=== PATIENT | female | born 1955 | race Caucasian/White ===

== ENCOUNTER 2018-08-04 01:05 | Outpatient (CLI) | payer BC, SELFPAY ==
--- NOTE | 2018-08-04 08:30 | DI.RAD_ITS ---
SYMPTOM/DIAGNOSIS: LT FOOT PAIN, ? STRESS FX LEFT FOOT: Three views were obtained. No fracture identified. There is reportedly a clinical suspicion of stress fracture and additional evaluation with MRI or bone scan could be considered for evaluation of this diagnostic possibility.
== END 2018-08-04 01:25 ==
PROVIDERS: PCP Nurse Practitioner; Visit Provider Chiropractor
DX: M79.672 Pain in left foot (principal)
CPT/HCPCS: 73630

== ENCOUNTER 2021-10-03 02:57 | Outpatient (CLI) | payer MEDICAID, SELFPAY ==
[2021-10-03 09:19] LABS: HCT 42.8 % (36.0-46.0); HGB 13.8 g/dL (11.2-15.7); MCH 30.7 pg (27.0-33.0); MCHC 32.2 % (32.0-36.0); MCV 95.1 fL (80-95); Platelet Count 282 10^3/uL (130-400); RDW 12.8 % (11.7-14.6); RDW-SD 44.5 fL; WBC 4.78 10^3/uL (4.4-10.8)
[2021-10-03 09:31] LABS: Hemoglobin A1C 5.8 % (<5.7)
[2021-10-03 10:16] LABS: ALT 44 U/L (14-59); AST 23 U/L (15-37); Albumin 3.9 g/dL (3.4-5.0); Alkaline Phosphatase 79 U/L (46-116); Anion Gap 8.5 mmol/L (3-11); BUN 14 mg/dL (7-18); Bilirubin, Total 0.3 mg/dL (0.2-1.0); CO2 29.5 mmol/L (21.0-32.0); CREATININE 0.8 mg/dL (0.55-1.02); Calcium 9.2 mg/dL (8.5-10.1); Calculated LDL 164 mg/dL (<100); Chloride 105 mmol/L (98-107); Cholesterol 252 mg/dL (<200); Glucose 102 mg/dL (74-106); HDL Cholesterol 74 mg/dL (40-60); Potassium 4.5 mmol/L (3.5-5.1); Sodium 143 mmol/L (136-145); TSH (W/Ref FT4) 0.06 uIU/mL (0.36-3.74); Triglyceride 71 mg/dL (<150)
[2021-10-03 10:38] LABS: FREE T4 0.89 ng/dL (0.76-1.46)
[2021-10-05 00:44] LABS: Vitamin D 25 Total 65.1 ng/mL (30-100)
== END 2021-10-03 02:58 | disposition home or self-care (01) ==
LOC: LBO 02:57
PROVIDERS: PCP Nurse Practitioner; Visit Provider Nurse Practitioner
DX: Z00.00 Encounter for general adult medical examination without abnormal findings (principal); Z13.220 Encounter for screening for lipoid disorders; Z86.39 Personal history of other endocrine, nutritional and metabolic disease; R73.01 Impaired fasting glucose; E55.9 Vitamin D deficiency, unspecified
CPT/HCPCS: 36415; 80053; 80061; 82306; 85027; 83036; 84439; 84443

== ENCOUNTER 2021-10-10 00:57 | Outpatient (CLI) | payer MEDICAID, SELFPAY ==
--- NOTE | 2021-10-10 12:30 | DI.MAMMO_ITS ---
Exam(s) MAMMO SCREENING EXAM: MAMMO SCREENING CLINICAL HISTORY: screening,z12.39 TECHNIQUE: Bilateral full field digital CC and MLO mammographic images were obtained with 3D tomosyn thesis and utilizing computer aided detection (CAD). COMPARISON: Available for comparison. FINDINGS: Masses/Architectural Distortion: None seen. Microcalcifications: No suspicious pleomorphic-type are seen. Skin Thickening/Nipple Retraction: None. IMPRESSION: 1. No significant interval change with no specific features of malignancy noted. 2. Unless there is more urgent need, screening mammography is recommended, as per [place] [employer] guidelines. BI-RADS Category 1 - Negative Breast Density - Category C - Heterogeneously dense Breast density category C or D implies that the patient has dense breast tissue. Dense breast tissue is very common and is not abnormal but dense breast tissue can make it harder to find cancer on a ma mmogram. Also, dense breast tissue may increase their breast cancer risk. This information about the result of the mammogram report was provided to the patient to raise their awareness. Use this report when you speak with the patient about their risks for breast cancer, which includes their family hist ory. At that time, you may recommend for more screening tests (Ultrasound or MRI) as they might be us eful based on their risk. A negative radiographic report should not delay biopsy if a dominant or clinically suspicious mass is present. Up to ten percent of cancers are not identified on mammography. A negative report may reinforce clinical impression. Adenosis and dense breasts may obscure an underlying neoplasm. False positive reports average 6 to 10%. Patient will receive a letter notifying them of these results.
== END 2021-10-10 01:17 ==
PROVIDERS: PCP Nurse Practitioner; Visit Provider Nurse Practitioner
DX: Z12.31 Encounter for screening mammogram for malignant neoplasm of breast (principal); R92.8 Other abnormal and inconclusive findings on diagnostic imaging of breast
CPT/HCPCS: 77063; 77067

== ENCOUNTER → 2022-08-24 08:56 | Outpatient (BNVA) | payer MEDICARE, MEDICAID, SELFPAY | PROVIDERS: PCP Nurse Practitioner; Referring Provider Nurse Practitioner; Visit Provider Surgery | DX: Z12.11 Encounter for screening for malignant neoplasm of colon (principal); Z86.010 Personal history of colon polyps ==

== ENCOUNTER 2022-08-27 11:18 | PSDC | payer MEDICARE, MEDICAID, SELFPAY ==
--- NOTE | 2022-08-27 07:15 | COLE_ITS ---
Date of service: 08/27/22 Time of Service: : Colonoscopy Report Date of procedure: 08/27/22 Pre-op diagnosis general: screening Post-op diagnosis procedure note: other (polyp and internal hemorrhoids) Procedure: Colonoscopy with polypectomy Internal hemorrhoid banding Surgeon: Luz Marina Fernández Anesthesia Type: General:No Airway Estimated blood loss (mL): 3 Complications: None Disposition: same day Indications: The patient? is a pleasant ? 67-year-old female who is here to discuss another screening colonoscopy. ? Her last colonoscopy was normal in 2011.? She denies any changes in bowel habits, melena, hematochezia, unintentional weight loss or family history of colon cancer.? The procedure and risks were discussed.? The prep was reviewed in detail.? Risks, benefits and complications have been reviewed. Complications include but are not limited to bleeding, pain, perforation, missed small lesion/polyp, sore throat, aspiration and adverse reaction to the medications. Questions were entertained and answered to their satisfaction and they wished to proceed. No guarantees were given or implied.? We discussed hemorrhoid banding at the time of her colonoscopy just like last time.? Risks alternatives and complications of hemorrhoid banding were reviewed with her. Prep: Miralax/Dulcolax Procedure Start Time: :22 Procedure End Time: 12:48 Retraction Time: 11 minutes Findings: one sessile polyp 3 internal hemorrhoids Procedure Description: After informed consent was obtained the patient was taken to the procedure room and placed in a left decubitous position. Monitors were applied and a time out was done. The patients name, date of , procedure, allergies to medications and metal in their body was reviewed. The patient was then sedated. Once sedated and comfortable a rectal exam was done. External exam was normal. Internal exam revealed a normal sphincter tone and no palpable masses. The scope was then introduced and retro-flexed. Grade 1 and 2 internal hemorrhoids were noted. No polyps or masses were identified on retro-flexion. The scope was then advanced to the cecum with some difficulty. The ileocecal vlave and appendiceal orifice were identified. The prep was good. The scope was then slowly retracted over 11 minutes back into the rectum. Polyps were removed with cold forceps in the sigmoid colon. There was no diverticulosis noted. The scope was removed. An anoscope was inserted and 3 internal h emorrhoids were banded in a standard fashion. The patient was woken up and taken back to Same day surgery in stable condition. The patient tolerated the procedure well and there were no immediate com plications. Follow up: The patient should follow up in 5 years unless they develop changes in bowel habits or other new gastrointestinal complaints.
--- NOTE | 2022-08-27 07:16 | PDOC.DSDIS_ITS ---
Date of service: 08/27/22 Time of Service: 12:22 Discharge Plan Disposition Patient Disposition: HOME Condition: Stable Discharge Details Reason For Visit: colonoscopy Attending Provider: Luz Marina Fernández Primary Care Provider: Yolande Wills Home Meds and New Rx's Prescriptions: Continued Ashwagandha 1 tab PO DAILY Label Comments: takes for adrenals. magnesium oxide 500 MG capsule 500 mg PO DAILY PRN Label Comments: takes for elimination/sleep. Curucema Tumeric 2 tab PO DAILY Label Comments: takes for inflammation GFT Chromium 3 tab PO DAILY Label Comments: takes for pancreas Rubalcava [place] 3 tab DAILY Label Comments: Takes for inflammation Pancreatrophin 3 tab PO DAILY Label Comments: Takes for pancreas-insulin. multivit no iron 1 PO DAILY mometasone 0.1 % cream 1 applic TP DAILY PRN Label Comments: Rx Instructions: 03/10/20- apply externally once a day to ears prn itching. acyclovir [Zovirax] 5 % ointment 1 applic TP 6XD PRN Rx Instructions: 03/10/20- externally to cold sores, five times a day clindamycin phosphate 1 % lotion 1 applic topical DAILY PRN (Reason: perioral dermatitis) Qty: 60 1RF valacyclovir 1 gram tablet 2,000 mg PO BID PRN Rx Instructions: 2 tabs BID for one day PRN Discontinued polyethylene glycol 3350 17 gram/dose powder 238 g PO ONCE Qty: 238 0RF Rx Instructions: take per colonoscopy instructions bisacodyl [Dulcolax (bisacodyl)] 5 mg tablet,delayed release (DR/EC) 5 mg PO ONCE Qty: 4 0RF Rx Instructions: take per colonoscopy instructions Discharge Instructions Instructions: Colorectal Polyps (DC), Hemorrhoids (DC), Rubber Band Ligation (DC) Additional Instructions: Findings: one polyp 3 hemorroids Follow up: 5 years Other: sitz baths for comfort Tylenol and ibuprofen for comfort Please call if you develop: fevers >101.5 Nausea or Vomiting Abdominal pain that is not transient Rectal bleeding that is more then a tbsp A hard abdomen and inability to pass gas DAY SURGERY UNIT POST ENDOSCOPY INSTRUCTIONS Instructions for everyone who is given Anesthesia: For your safety, please do the following for the next 24 Hours: a. Do not drive or operate dangerous equipment b. Do not drink alcohol beverages or use any recreational drugs for the first 24 hours or while taking pain medications. The medications in your body may have a reaction that can be dangerous. c. Do not make any important decisions or sign any important papers 1. Generally there are no restrictions on your activity after a day or so has gone by, but you may feel a bit fatigued for a few days. 2. After you arrive home you may have a light meal and return to a normal diet as you can tolerate it without feeling sick to your stomach. 3. After surgery, you may feel pain or discomfort. This should be only transient, but if it persists please contact your doctor. 4. If there are any questions regarding the findings of your procedure, please feel free to contact your doctor. 6. If you are unable to contact your doctor with a problem, contact the hospital at [phone]. 7. Continue all your regular medications unless directed otherwise. I understand the above instructions and have no questions. Signature of Patient or Responsible Adult Escort Date/Time Name of Responsible Adult Escort Signature of Nurse Date/Time Activity:: Activity as Tolerated Activity:: Activity as Tolerated Diet:: As Tolerated Discharge Orders Discharge Orders: Discharge Order (Routine); Ordered 08/27/22 Ordered By: Luz Marina Fernández
[2022-08-27 11:40] VITALS: BP 134/65; PULSE 76; RESP 16; TEMP 36.6; O2SAT 98
--- NOTE | 2022-08-27 12:01 | W.ANESPRE ---
General Info Date of Service Date Performed: 08/27/22 Height: 5 ft 3 in Weight: 61.1 kg Body Mass Index (BMI): 23.8 Surgical Procedure: Operation Date: 08/27/22 12:50 Proposed Procedure Side Surgeon p Colonoscopy Luz Marina Fernández MD Meds Allergies and Home Medications Allergies Allergy/AdvReac Type Severity Reaction Status Date / Time gluten AdvReac Severe hard, Verified 08/27/22 11:44 painful stomach, and cold sores. corn AdvReac blistering Verified 08/27/22 11:44 and skin dryness Home Medication Medication Instructions Recorded Ashwagandha 1 tab PO DAILY 11/07/16 Curucema Tumeric 2 tab PO DAILY 11/07/16 Gft Chromium 3 tab PO DAILY 11/07/16 Rubalcava [place] 3 tab DAILY 11/07/16 Multivit No Iron 1 PO DAILY 11/07/16 Pancreatrophin 3 tab PO DAILY 11/07/16 magnesium oxide 500 mg capsule 500 mg PO DAILY PRN 11/07/16 acyclovir 5 % topical ointment 1 applic topical 6XD PRN 03/11/20 (Zovirax) mometasone 0.1 % topical cream 1 applic topical DAILY PRN 03/11/20 clindamycin phosphate 1 % lotion 1 applic topical DAILY PRN 10/09/21 perioral dermatitis #60 mL bisacodyl 5 mg tablet,delayed 5 mg PO ONCE colonscopy bowel prep 08/24/22 release (Dulcolax (bisacodyl)) #4 tabs polyethylene glycol 3350 17 238 g PO ONCE colonoscopy prep 08/24/22 gram/dose oral powder #238 grams valacyclovir 1 gram tablet 2,000 mg PO BID PRN 08/24/22 Current Visit Medications: Current Medications Generic Name Dose Route Start Last Admin Trade Name Freq PRN Reason Stop Dose Admin Hyoscyamine Sulfate 0.125 mg 08/27/22 07:17 Hyoscyamine 0.125 Mg Sl/Oral/Chew SL DIRECTED PRN Ringer's Solution 1,000 mls @ 80 mls/hr 08/27/22 06:00 IV 09/23/22 23:59 INFUSION [facility] IV Miscellaneous Supplies 1 each 08/27/22 06:00 Iv Access IV 09/23/22 23:59 DIRECTED [facility] Ondansetron HCl 4 mg 08/27/22 07:17 Ondansetron 4 Mg/2 Ml Vial IVP Q4H PRN PRN Nausea / Vomiting Sodium Chloride 0 ml 08/27/22 06:00 Normal Saline Flush 10 Ml Syr IV 09/23/22 23:59 PRN PRN Sodium Chloride 0 ml 08/27/22 06:00 Normal Saline 10 Ml Vial IJ 09/23/22 23:59 DIRECTED PRN Sterile Water 0 ml 08/27/22 06:00 Water,Injection,Sterile 10 Ml Vial IJ 09/23/22 23:59 DIRECTED PRN PFSH Active Problems Active Problems: Problem Status Onset Code SARS-CoV-2 positive ~03/06/22 U07.1 Perioral dermatitis ~10/09/21 L71.0 Acute swimmer's ear of right side H60.331 Impacted cerumen of both ears H61.23 Impacted cerumen 06/16/15 H61.20 Postmenopausal atrophic vaginitis 10/01/17 N95.2 Hemorrhoids 10/10/16 K64.9 Eczema 06/16/15 L30.9 Conductive hearing loss, external ear 06/16/15 H90.2 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 Tobacco Smoking/Tobacco Use Status: Former Tobacco Use Passive smoking exposure: No Second hand exposure: No Alcohol Alcohol Intake: current Alcohol intake frequency: 0-2 drinks per day Substance Use Substance use: Never Substance use type: does not use Vital Signs and Lab Results Vital Signs Most Recent Vital Signs in EMR: Most Recent Vital Signs Temp Pulse Resp BP Pulse Ox 36.6 C 76 16 134/65 98 08/27/22 11:40 08/27/22 11:40 08/27/22 11:40 08/27/22 11:40 08/27/22 11:40 Lab Results Blood Type / Crossmatch: No Data to Display Complete Blood Count: No Data to Display Complete Metabolic Panel: No Data to Display Liver Function Panel: No Data to Display Coagulation Panel: No Data to Display Cardiac Panel: No Data to Display Arterial Blood Gas: No Data to Display Venous Blood Gas: No Data to Display Pancreas Panel: No Data to Display Thyroid Panel: No Data to Display Infectious Disease: No Data to Display Blood Cultures: No Data to Display Toxicology Panel: No Data to Display Anesthesia Assessment and Plan Anesthesia History Personal History: No History of Anesthesia Complications Family History: No Family History of Anesthesia Complications Exercise Tolerance Exercise Tolerance: Metabolic Equivalents>4 Pertinent Negatives Pertinent Negatives: No Symptoms of GERD, No Major Cardiovascular Symptoms or Complaints and No Major Pulmonary Symptoms or Complaints Cardiac & Pulmonary Exam Cardiac Exam: Normal S1/S2 Heart Sounds Pulmonary Exam: Clear Bilateral Breath Sounds Implantable Cardiac Device Does patient have a Pacemaker or an ICD?: No Airway Exam Known Difficult Airway: No Mallampati Class: 3 Mouth Opening: Narrow (< 3cm) Thyromental Distance: Greater than 3 cm Neck Range of Motion: Full ROM Neck Circumference: Normal Teeth Condition: Normal Dentition ASA Classification ASA Score: ASA 2 Emergency Case?: No NPO Status NPO Status: NPO Clears >2 hours, Solids >8 hours Anesthesia Plan Resuscitation Status: Full Code Anesthesia Technique: General Anesthesia Airway Planned: Natural Airway Monitors Used: Standard Monitors
[2022-08-27] MEDS: Lactated Ringers 1,000 ML 80 ML IV (12:02)
[2022-08-27 12:07] VITALS: BMI 23.8
--- NOTE | 2022-08-27 12:41 | BOWEL_PTH ---
PATIENT: Meme Patel LOC: [facility] U#:[id number] AGE/SX: 67/F ROOM: RE08/27/[address]: Luz Marina Fernández MD : 1955 BED: DIS: 08/27/2022 SPEC #: [id number] RECD: 08/27/22 14:57 STATUS: TRAN RE #: [id number] TRAY: 08/27/22 12:[address]: Luz Marina Fernández DEPT: Surgical Specimen RECD BY: Dee Dee Lora ENTERED: 08/27/22 14:57 SP TYPE: Bowel OTHR DR: Yolande Wills APRN Tissues: 1 - BIOPSY BOWEL Procedures: GROSS AND MICRO LEVEL 4 Comments: [id number]
[2022-08-27 12:52] VITALS: BP 135/63; PULSE 72; RESP 16; TEMP 36.6; O2SAT 96
[2022-08-27 13:22] VITALS: BP 145/70; PULSE 69; RESP 16; TEMP 36.4; O2SAT 97
[2022-08-27] MEDS: Acetaminophen 500 MG TAB 1000 MG PO (13:46)
[2022-08-27] MEDS: Lidocaine 2% Jelly 6 ML SYR TP (13:47)
--- NOTE | 2022-08-27 13:48 | W.ANESPOSTOP ---
Postoperative Evaluation Date, Time and Location Date Performed: 08/27/22 Time Performed: 13:22 Patient Location: Day Surgery Unit Vital Signs Most Recent Imported Vital Signs: Most Recent Vital Signs Temp Pulse Resp BP Pulse Ox 36.4 C L 69 16 145/70 H 97 08/27/22 13:22 08/27/22 13:22 08/27/22 13:22 08/27/22 13:22 08/27/22 13:22 Pain Score Most Recent Pain Score: Most Recent Pain Score Pain Level 8 08/27/22 13:22 Assessment Mental Status: Awake (Alert & Oriented to Patient Baseline) Airway and Respiratory Function: Patent airway with normal (patient baseline) respiratory exam Cardiovascular Function: Hemodynamically Stable Hydration Status: Adequately Hydrated Nausea & Vomiting: No Nausea or Vomiting Pain: Pain is Moderate or Severe Postoperative Pain Management: Pain being addressed with medication (Hemorrhoid banding site, acetaminophen and topical lidocaine) Peripheral Nerve Block: Patient did not receive a nerve block
== END 2022-08-27 14:20 | disposition home or self-care (01) ==
PROVIDERS: PCP Nurse Practitioner; Visit Provider Surgery
PROC: 0DJD8ZZ Inspection of Lower Intestinal Tract, Via Natural or Artificial Opening Endoscopic (ICD-10-PCS; CPT 45378; principal; 2022-08-27 12:45)
DX: Z12.11 Encounter for screening for malignant neoplasm of colon (principal); K64.1 Second degree hemorrhoids; K63.5 Polyp of colon
CPT/HCPCS: 45380; 46221; 88305

== ENCOUNTER 2022-09-27 15:28 | Outpatient (REF) | payer MEDICARE, MEDICAID, SELFPAY ==
--- NOTE | 2022-09-27 13:30 | PAPFT_PTH ---
PATIENT: Meme Patel LOC: [facility] U#:[id number] AGE/SX: 67/F ROOM: RE09/27/[address]: Yolande Wills APRN : 1955 BED: DIS: 09/27/2022 SPEC #: [id number] RECD: 09/27/22 17:15 STATUS: TRAN REFiliberto #: [id number] TRAY: 09/27/22 13:[address]: Yolande Wills DEPT: [facility] Cytology RECD BY: Mabel Lemus Tissues: 1 - CX/ENDOCX FOR PAP SMEARS Procedures: PAP THIN PREP/UVM Screening HPV DNA PROBE Comments: [id number]
== END 2022-09-27 15:29 | disposition home or self-care (01) ==
LOC: LBN 15:28
PROVIDERS: PCP Nurse Practitioner; Visit Provider Nurse Practitioner
DX: Z01.419 Encounter for gynecological examination (general) (routine) without abnormal findings (principal); Z11.51 Encounter for screening for human papillomavirus (HPV)
CPT/HCPCS: 88142; 87624

== ENCOUNTER 2022-10-02 02:32 | Outpatient (CLI) | payer MEDICARE, MEDICAID, SELFPAY ==
[2022-10-02 11:32] LABS: HCT 41.3 % (36.0-46.0); HGB 13.4 g/dL (11.2-15.7); MCH 31.1 pg (27.0-33.0); MCHC 32.4 % (32.0-36.0); MCV 96 fL (80-95); MPV 9.8 fL (8.0-11.0); Platelet Count 265 10^3/uL (130-400); RBC 4.31 10^6/uL (3.93-5.22); RDW 12.1 % (11.7-14.6); RDW-SD 43.1 fL; WBC 5.39 10^3/uL (4.4-10.8)
[2022-10-02 12:19] LABS: ALT 47 U/L (14-59); AST 27 U/L (15-37); Alkaline Phosphatase 75 U/L (46-116); Anion Gap 6.7 mmol/L (3-11); BUN 14 mg/dL (7-18); Bilirubin, Total 0.4 mg/dL (0.2-1.0); CO2 30.3 mmol/L (21.0-32.0); CREATININE 0.8 mg/dL (0.55-1.02); Calcium 9.3 mg/dL (8.5-10.1); Calculated LDL 155 mg/dL (<100); Chloride 102 mmol/L (98-107); Cholesterol 247 mg/dL (<200); Estimated GFR 81.72 (mL/min/1.73m2); Glucose 106 mg/dL (74-106); HDL Cholesterol 72 mg/dL (40-60); Potassium 4.4 mmol/L (3.5-5.1); Sodium 139 mmol/L (136-145); Total Protein 7.4 g/dL (6.4-8.2); Triglyceride 102 mg/dL (<150)
[2022-10-02 12:35] LABS: Hemoglobin A1C 5.9 % (<5.7)
== END 2022-10-02 02:33 | disposition home or self-care (01) ==
LOC: LBO 02:32
PROVIDERS: PCP Nurse Practitioner; Visit Provider Nurse Practitioner
DX: E78.5 Hyperlipidemia, unspecified (principal); R73.03 Prediabetes; Z01.419 Encounter for gynecological examination (general) (routine) without abnormal findings
CPT/HCPCS: 36415; 80053; 80061; 85027; 83036

== ENCOUNTER 2023-10-04 03:09 | Outpatient (CLI) | payer MEDICARE, OTHER, SELFPAY ==
[2023-10-04 10:18] LABS: Hemoglobin A1C 5.9 % (<5.7)
[2023-10-04 10:38] LABS: Anion Gap 9.1 mmol/L (3-11); BUN 14 mg/dL (7-18); CO2 26.9 mmol/L (21.0-32.0); CREATININE 0.8 mg/dL (0.55-1.02); Calcium 9.3 mg/dL (8.5-10.1); Calculated LDL 169 mg/dL (<100); Chloride 103 mmol/L (98-107); Cholesterol 262 mg/dL (<200); Estimated GFR 81.21 (mL/min/1.73m2); Glucose 106 mg/dL (74-106); HDL Cholesterol 85 mg/dL (40-60); Potassium 4.3 mmol/L (3.5-5.1); Sodium 139 mmol/L (136-145); TSH (W/Ref FT4) 0.13 uIU/mL (0.36-3.74); Triglyceride 41 mg/dL (<150)
[2023-10-04 10:57] LABS: FREE T4 0.95 ng/dL (0.76-1.46)
[2023-10-04 17:52] LABS: CRP, High Sensitivity 3.83 mg/L (See Note)
[2023-10-04 21:46] LABS: Hepatitis C Ab w Rflx HCV PCR Negative (Negative)
== END 2023-10-04 03:10 | disposition home or self-care (01) ==
LOC: LBO 03:09
PROVIDERS: PCP Nurse Practitioner; Referring Provider Nurse Practitioner; Visit Provider Nurse Practitioner
DX: R73.03 Prediabetes (principal); I10 Essential (primary) hypertension; E78.5 Hyperlipidemia, unspecified
CPT/HCPCS: 36415; 80048; 80061; 86141; 86803; 83036; 84439; 84443

== ENCOUNTER → 2024-01-02 01:42 | Outpatient (CLI) | payer MEDICARE, OTHER, SELFPAY ==
--- NOTE | 2024-01-02 14:56 | DI.DEXA_ITS ---
Exam(s) XR DEXA BONE DENSITY W/WO ALBA EXAM: XR DEXA BONE DENSITY W/WO ALBA CLINICAL HISTORY: screening for osteoporosis in postmenopausal woman,z78.0 TECHNIQUE: Routine DEXA evaluation of the lumbar spine, hip, or forearm. COMPARISON: No exams were available for comparison FINDINGS: Performed on a Hologic unit. Lateral image: No compression fracture evident. Lumbar Spine total T-score: -1.5 Hip total T-score:-0.9 Independent reading at the level of the femoral neck yields T-score of -1.5 Forearm total T-score: Minus 2.4 IMPRESSION: Bone mineral density measures in the osteopenia range. Fracture risk is moderate. Note: Any spine fracture indicates 5x risk for subsequent spine fracture and 2x risk for subsequent h ip fracture. World Health Organization criteria for BMD interpretation classify patients: Normal...... T- Score at or above -1.0 Osteopenic... T- Score between -1.0 and -2.5 Osteoporosis... T-Score at or below -2.5
== END ==
PROVIDERS: PCP Nurse Practitioner; Visit Provider Nurse Practitioner
DX: Z12.31 Encounter for screening mammogram for malignant neoplasm of breast (principal); Z13.820 Encounter for screening for osteoporosis; M85.89 Other specified disorders of bone density and structure, multiple sites
CPT/HCPCS: 77063; 77067; 77080

== ENCOUNTER 2024-01-08 05:10 | Outpatient (CLI) | payer MEDICARE, OTHER, SELFPAY ==
[2024-01-08 16:17] LABS: Hemoglobin A1C 6.1 % (<5.7)
== END 2024-01-08 05:11 | disposition home or self-care (01) ==
LOC: LBO 05:10
PROVIDERS: PCP Nurse Practitioner; Visit Provider Nurse Practitioner
DX: R73.03 Prediabetes (principal); I10 Essential (primary) hypertension; E78.5 Hyperlipidemia, unspecified
CPT/HCPCS: 36415; 82652; 83036

== ENCOUNTER 2024-01-31 01:27 | Outpatient (CLI) | payer MEDICARE, OTHER, SELFPAY ==
[2024-01-31 15:59] LABS: Vitamin D 25 Total 66.2 ng/mL (30-100)
== END 2024-01-31 01:28 | disposition home or self-care (01) ==
LOC: LBO 01:28
PROVIDERS: PCP Nurse Practitioner; Visit Provider Nurse Practitioner
DX: M85.88 Other specified disorders of bone density and structure, other site (principal); E55.9 Vitamin D deficiency, unspecified
CPT/HCPCS: 36415; 82306

== ENCOUNTER 2024-05-06 03:15 | Outpatient (CLI) | payer MEDICARE, OTHER, SELFPAY ==
--- OUTSIDE RECORDS SUMMARY | 2024-05-06 03:17 | XMS_ITS | Clinical Summary ---
Author Organization [facility] Address [address] [place] [address] Care Team Providers Care Cae Engineer Name Role Phone Yolande Wills [employer]ENIOR [employer] DEVELOPER Primary Care Provider [phone] Social History Tobacco Use Types Packs/Day Years Used Date Smoking Tobacco: Never Assessed Sex and Gender Information Value Date Recorded Sex Assigned at Not on file Gender Identity Not on file Sexual Orientation Not on file Plan of Treatment Health Maintenance Due Date Last Done Comments RSV Immunization ( o r 60+ Years) (1 - 1-dose 60+ series) 2017 Fall Risk Screening 2022 COVID-19 Vaccine ( season) 2023 Hepatitis C Screen Completed 10/04/2023 Procedures Procedure Name Priority Date/Time Associated Diagnosis Comments HEPATITIS C AB W REFLEX TO HCV RNA BY PCR Today 10/04/2023 10:04 EST from Last 3 Months or Most Recently Relevant to Health Maintenance Results * HEPATITIS C AB W REFLEX TO HCV RNA BY PCR (10/04/2023 10:04 EST) Hep C Antibody Negative Negative 10/04/2023 21:[address] [facility] Blood VENOUS BLOOD / Unknown 10/04/2023 10:04 EST 10/04/2023 17:25 EST Provider Outr Resulting Lab CHEMISTRY & BLOOD GAS ORDERABLES [facility] [address] [place] [address] from Last 3 Months or Most Recently Relevant to Health Maintenance Care Teams Cae Engineer Relationship Specialty Start Date End Date Yolande Wills NP [address] [place] [address] PCP - General Family Medicine - Primary Care 07/21/22
--- OUTSIDE RECORDS SUMMARY | 2024-05-06 03:17 | XMS_ITS | Encounter Summary ---
Author Organization [facility] Address [address] [place] [address] Care Team Providers Care Clinical Nurse Reviewer Name Role Phone Miguel Catherine MD Primary Care Provider Unavailabl e Encounter Details Date Type Department Care Team (Late st Contact Info) Description 03/20/2012 Results Only [facility] - [facility] [place] [place] [address], [place] [address] Rangel Noel MD [address] [place] [id number] Social History Tobacco Use Types Packs/Day Years Used Date Smoking Tobacco: Never Assessed Sex and Gender Information Value Date Recorded Sex Assigned at Not on file Gender Identity Not on file Sexual Orientation Not on file documented as of this encounter Plan of Treatment Not on file documented as of this encounter Procedures Procedure Name Priority Date/Time Associated Diagnosis Comments SURGICAL PATHOLOGY Routine 03/20/2012 0:00 EDT documented in this encounter Results * SURGICAL PATHOLOGY (03/20/2012 0:00 EDT) Pathology Report: SURGICAL PATHOLOGY REPORT Reports generated via electronic interface contain original data; however they are lacking the format of the original report. Caution should be taken when reading/interpreti ng unformatted reports. Name: ? MEME GUERRERO ? Accession #: ? [id number] ? : ? 1955 (Age: 57) ??F ? Collect Date: ? 03/20/2012 ? Location: ? [facility] ? Receive Date: ? 03/21/2012 ? Provider: RANGEL NOEL MD Copy to: MIGUEL CATHERINE MD ? Final Pathologic Diagnosis: ? Colon, 20 cm, polyp, biopsy: - Hyperplastic polyp. Document reviewed and electronically signed by: TOMMIE SWANSON MD Report ??Date: 03/26/2012 16:14 By the signature above, the attending physician certifies that he/she has personally conducted a gross and/or microscopic examination of the described specimens and rendered or confirmed the above diagnosis. Specimen(s) Received: ? Colon polyp 20 cm Clinical History: ? Screening Gross Description: ? Received in formalin labelled Meme Guerrero and colon polyp 20 cm is a amaro-pink irregular soft tissue fragment measuring 0.4 x 0.3 x 0.2 cm. ??The specimen is entirely submitted in a single cassette. (Lyn Portillo)/mpl End of Report ERICK BALDERAS 03/20/2012 03/21/2012 8:0 5 EDT Rangel Noel MD PATHOLOGY ORDERABLE [facility] [address] [place] [address] documented in this encounter Visit Diagnoses Not on filedocumented in this encounter Care Teams Clinical Nurse Reviewer Relationship Specialty Start Date End Date Miguel Catherine MD PCP - General 03/21/12 07/20/22 documented as of this encounter
--- OUTSIDE RECORDS SUMMARY | 2024-05-06 03:17 | XMS_ITS | Encounter Summary ---
Author Organization [facility] Address [address] [place] [address] Care Team Providers Care Loan Processing Supervisor Name Role Phone Yolande Wills PERFORATOR LOADER Primary Care Provider [phone] Encounter Details Date Type Department Care Team (Late st Contact Info) Description 08/28/2022 Lab Requisition [facility] Pathology & Laboratory Medicine - [facility] [address] [place] [address] Yasmani Fernández MD [address] [place] [address] [address], [place] [id number] Encounter for screening for malignant neoplasm of colon Social History Tobacco Use Types Packs/Day Years Used Date Smoking Tobacco: Never Assessed Sex and Gender Information Value Date Recorded Sex Assigned at Not on file Gender Identity Not on file Sexual Orientation Not on file documented as of this encounter Plan of Treatment Not on file documented as of this encounter Procedures Procedure Name Priority Date/Time Associated Diagnosis Comments SURGICAL PATHOLOGY Today 08/27/2022 12 :41 EST Encounter for screening for malignant neoplasm of colon documented in this encounter Results * SURGICAL PATHOLOGY (08/27/2022 12:41 EST) Note to Patient The following pathology results have been interpreted by your pathologist and may be available to you before your health provider has had the opportunity to review them. Please allow time for your provider to receive these results and explore management options, if applicable. 08/29/2022 11:12 EST [facility] Final Diagnosis A. COLON, SIGMOID, POLYP, BIOPSY: - Serrated polyp most consistent with hyperplastic polyp. 08/29/2022 11:12 [facility] Attestation There was significant resident/fellow involvement in the diagnostic evaluation of this case. By the signature below, the attending physician certifies that they have personally conducted a gross and/or microscopic examination of the described specimens and rendered or confirmed the above diagnosis. 08/29/2022 11:12 [facility] at 1112 Clinical History Screening for colon cancer 08/29/2022 11:12 [facility] Gross Description A. Received in formalin labelled with proper patient identification (initials D, S) and sigmoid polyp is a single amaro tissue fragment (0.6 x 0.1 x 0.1 cm). Submitted intact in A1. ALEXYMELANY WILSON 08/28/2022 8:40 08/29/2022 11:12 [facility] Resident/Joseph w: Annabelle Yancey MD 08/29/2022 11:12 [facility] Performing Lab [facility] 08/29/2022 11:12 [facility] Scanned Images 08/29/2022 11:12 [facility] Tissue ENTIRE SIGMOID COLON / Unknown 08/27/2022 12:41 EST 08/28/2022 7:44 EST Yasmani Fernández MD PATHOLOGY [facility] [address] [place] [address] documented in this encounter Visit Diagnoses Diagnosis Encounter for screening for malignant neoplasm of colon Special screening for malignant neoplasms, colon documented in this encounter Care Teams Loan Processing Supervisor Relationship Specialty Start Date End Date Yolande Wills NP [address] [place] [address] PCP - General Family Medicine - Primary Care 07/21/22 documented as of this encounter
--- OUTSIDE RECORDS SUMMARY | 2024-05-06 03:17 | XMS_ITS | Encounter Summary ---
Author Organization [facility] Address [address] [place] [address] Care Team Providers Care General Distillery Worker Name Role Phone Yolande Wills ADVERTISING CLERK Primary Care Provider [phone] Encounter Details Date Type Department Care Team (Late st Contact Info) Description 10/04/2023 Lab Requisition [facility] Pathology & Laboratory Medicine - [facility] [address] [place] [address], [place] [id number] Outr Resulting Lab, Provider Social History Tobacco Use Types Packs/Day Years Used Date Smoking Tobacco: Never Assessed Sex and Gender Information Value Date Recorded Sex Assigned at Not on file Gender Identity Not on file Sexual Orientation Not on file documented as of this encounter Plan of Treatment Not on file documented as of this encounter Procedures Procedure Name Priority Date/Time Associated Diagnosis Comments HOLD SST Today 10/04/2023 10:04 EST HEPATITIS C AB W REFLEX TO HCV RNA BY PCR Today 10/04/2023 10:04 EST HIGH SENSITIVITY C-REACTIVE PROTEIN (CARDIOVASCULAR DISEASE) Today 10/04/2023 10:04 EST documented in this encounter Results * HOLD SST (10/04/2023 10:04 EST) Hold Hold 10/04/2023 18:31 EST [facility] Blood VENOUS BLOOD / Unknown 10/04/2023 10:04 EST 10/04/2023 17:30 EST Provider Outr Resulting Lab LAB INFO SER VICE AND SUPPORT & PHONE RESULT Performing Organization Address City/[facility]/ZIP Co de Phone Number [facility] [address] [place] [address] * HEPATITIS C AB W REFLEX TO HCV RNA BY PCR (10/04/2023 10:04 EST) Pathologist [facility] Hep C Antibody Negative Negative 10/04/2023 21:42 EST [facility] Blood VENOUS BLOOD / Unknown 10/04/2023 10:04 EST 10/04/2023 17:25 EST Provider Outr Resulting Lab CHEMISTRY & BLOOD GAS ORDERABLES Performing Organization Address [facility] de Phone Number [facility] [address] [place] [address] * HIGH SENSITIVITY C-REACTIVE PROTEIN (CARDIOVASCULAR DISEASE) (10/04/2023 10:04 EST) Pathologist [facility] High Sensitivity CRP 3.83 See Note mg/L 10/04/2023 17:48 EST [facility] Comment: Reference Range: ??Low Risk: ? <1.0 mg/L ??Average Risk: ?? 1.0 - 3.0 mg/L ??High Risk: ?>3.0 mg/L ??Indeterminate*: >10.0 mg/L ??*May be an indication of another source of inflammation or infection Blood VENOUS BLOOD / Unknown 10/04/2023 10:04 EST 10/04/2023 17:25 EST Provider Outr Resulting Lab CHEMISTRY & BLOOD GAS ORDERABLES Performing Organization Address [facility] Co de Phone Number [facility] [address] [place] [address] documented in this encounter Visit Diagnoses Not on filedocumented in this encounter Care Teams General Distillery Worker Relationship Specialty Start Date End Date Yolande Wills NP [address] [place] [address] PCP - General Family Medicine - Primary Care 07/21/22 documented as of this encounter
--- OUTSIDE RECORDS SUMMARY | 2024-05-06 03:17 | XMS_ITS | Referral Summary ---
Author Organization [facility] Address [address] [place] [address] Care Team Providers Care Digester Name Role Phone Yolande Wills PLATE SENSITIZER Primary Care Provider [phone] Social History Tobacco Use Types Packs/Day Years Used Date Smoking Tobacco: Never Assessed Sex and Gender Information Value Date Recorded Sex Assigned at Not on file Gender Identity Not on file Sexual Orientation Not on file Plan of Treatment Not on file Procedures Procedure Name Priority Date/Time Associated Diagnosis Comments HEPATITIS C AB W REFLEX TO HCV RNA BY PCR Today 10/04/2023 10:04 EST from Last 3 Months or Most Recently Relevant to Health Maintenance Results * HEPATITIS C AB W REFLEX TO HCV RNA BY PCR (10/04/2023 10:04 EST) Hep C Antibody Negative Negative 10/04/2023 21:42 EST [facility] Blood VENOUS BLOOD / Unknown 10/04/2023 10:04 EST 10/04/2023 17:25 EST Provider Outr Resulting Lab CHEMISTRY & BLOOD GAS ORDERABLES [facility] [address] [place] [address] from Last 3 Months or Most Recently Relevant to Health Maintenance Care Teams Digester Relationship Specialty Start Date End Date Yolande Wills NP [address] [place] [address] PCP - General Family Medicine - Primary Care 07/21/22
--- OUTSIDE RECORDS SUMMARY | 2024-05-06 03:17 | XMS_ITS | Encounter Summary ---
Author Organization [facility] Address [address] [place] [address] Care Team Providers Care Machine Repair Person Name Role Phone Jordy Catherine MD Primary Care Provider [place] e Encounter Details Date Type Department Care Team (Late st Contact Info) Description 10/01/[address] [facility] [phone] Yolande Wills, INSPECTOR PRECISION ASSEMBLY [address] [place] [address] Social History Tobacco Use Types Packs/Day Years Used Date Smoking Tobacco: Never Assessed Sex and Gender Information Value Date Recorded Sex Assigned at Not on file Gender Identity Not on file Sexual Orientation Not on file documented as of this encounter Plan of Treatment Not on file documented as of this encounter Procedures Procedure Name Priority Date/Time Associated Diagnosis Comments PAP TEST- RESULT ONLY Routine 10/01/2017 0:00 EST documented in this encounter Results * PAP TEST- RESULT ONLY (10/01/2017 0:00 EST) Pathology Report: CYTOPATHOLOGY REPORT Reports generated via electronic interface contain original data; however they are lacking the format of the original report. Caution should be taken when reading/interpreti ng unformatted reports. Name: ? MEME GUERRERO ? Accession #: ? [id number] ? : ? 1955 (Age: 62) ??F ?Collect Date: ? 10/01/2017 ? Location: ? [facility] ? Receive Date: ? 10/03/2017 ? Provider: YOLANDE WILLS NP Copy to: ? Final Report SPECIMEN ADEQUACY ? Satisfactory for Evaluation - transformation zone component absent GENERAL CATEGORIZATION ? Negative for Intraepithelial Lesion or Malignancy ?? Specimen/Source: ??Pap Test, Cervix/Endocervix, ThinPrep Imaging System with manual evaluation Document reviewed and electronically signed by: ? RENETTA Escobar(ASCP) ? Report ??Date: 10/16/2017 11:40 HPV with Pap Test ? Date Ordered: ? 10/16/2017 ? Status: ?? Signed Out ?Date Complete: ? 10/18/2017 ? By: ??System Interface ? Date Reported: ? 10/18/2017 ? Interpretation RESULT: Negative for HPV. No E6 or E7 mRNA is detected from HPV types 16,18,31,33,35, 39,45,51,52,56,58, 59,66, and 68 by relief docking master mediated amplification. Comments Document reviewed and electronically signed by: ? System Interface ? Report date: 10/18/2017 By the signature above, the attending physician certifies that he/she has personally conducted a gross and/or microscopic examination of the described specimens and rendered or confirmed the above diagnosis. End of Report [facility] 10/01/2017 10/03/2017 Yolande Wills NP PATHOLOGY ORDERABLES [facility] [address] [place] [address] documented in this encounter Visit Diagnoses Not on filedocumented in this encounter Care Teams Machine Repair Person Relationship Specialty Start Date End Date Jordy Catherine MD PCP - General 03/21/12 07/20/22 documented as of this encounter
--- OUTSIDE RECORDS SUMMARY | 2024-05-06 03:17 | XMS_ITS | Encounter Summary ---
Author Organization [facility] Address [address] [place] [address] Care Team Providers Care Machine Stamper Name Role Phone Yolande Wills GRILL COOK Primary Care Provider [phone] Encounter Details Date Type Department Care Team (Latest Contact Info) Description 09/28/2022 Lab Requisition [facility] Pathology & Laboratory Medicine - [facility] [address] [place] [address] Yolande Wills, GRILL COOK [address] [place] [phone] Encounter for screening for malignant neoplasm of cervix; Encounter for screening for human papillomavirus (HPV) Social History Tobacco Use Types Packs/Day Years Used Date Smoking Tobacco: Never Assessed Sex and Gender Information Value Date Recorded Sex Assigned at Not on file Gender Identity Not on file Sexual Orientation Not on file documented as of this encounter Plan of Treatment Not on file documented as of this encounter Procedures Procedure Name Priority Date/Time Associated Diagnosis Comments PAP TEST Today 09/27/2022 13:30 EST Encounter for screening for malignant neoplasm of cervix Encounter for screening for human papillomavirus (HPV) HPV DNA DETECTION WITH GENOTYPING, PCR Today 09/27/2022 13:30 EST Encounter for screening for malignant neoplasm of cervix Encounter for screening for human papillomavirus (HPV) documented in this encounter Results * HUMAN PAPILLOMAVIRUS (HPV) DETECTION-HIGH RISK TYPES (09/27/2022 13:30 EST) HPV other High Risk types, PCR Negative Negative 10/09/2022 14:54 [facility] Comment:No E6 or E7 mRNA is detected from HPV types 16,18,31,33,35,39,45,51,52,56,58,59,66, and 68 by polisher apprentice mediated amplification. Papanicolaou smear specimen (specimen) CERVIX UTERI STRUCTURE / Unknown 09/27/2022 13:30 EST 10/08/2022 14:20 EST Yolande Wills GRILL COOK MICROBIOLOGY - GENER AL ORDERABLES [facility] [address] [place] [address] * PAP TEST (09/27/2022 13:30 EST) Specimens A. Cervix and/or Endocervix , ThinPrep Imaging System with Manual Evaluation 10/09/2022 14:54 [facility] Specimen Adequacy Satisfactory for Evaluation - transformation zone component present 10/09/2022 14:54 [facility] General Categorization Negative for intraepithelial lesion or malignancy 10/09/2022 14:54 [facility] Descriptive Diagnosis Reactive cellular changes associated with inflammation present (includes repair). 10/09/2022 14:54 [facility] Attestation By the signature below, the attending physician certifies that they have personally conducted a gross and/or microscopic examination of the described specimens and rendered or confirmed the above diagnosis. 10/09/2022 14:54 [facility] at 1454 Clinical History See below 10/09/20 14:54 [facility] HPV The result for the Human Papillomavirus (HPV) Detection-High Risk Types is Negative. No E6 or E7 mRNA is detected from HPV types 16,18,31,33,35,39 ,45,51,52,56,58,5 9,66, and 68 by polisher apprentice mediated amplification.Yuko ting was performed on specimen [id number] and was resulted on 10/09/2022 1454 EST by LASHAY, LAB INSTRUMENT RESULTS IN 10/09/2022 14:54 [facility] Performing Lab [facility] 10/09/2022 14:[address] [facility] Scanned Images 10/09/2022 14:[address] [facility] Papanicolaou smear specimen (specimen) CERVIX UTERI STRUCTURE / Unknown 09/27/2022 13:30 EST 09/28/2022 9:39 EST Yolande Wills NP PATHOLOGY ORDERABLES [facility] [address] [place] [address] documented in this encounter Visit Diagnoses Diagnosis Encounter for screening for malignant neoplasm of cervix Screening for malignant neoplasm of the cervix Encounter for screening for human papillomavirus (HPV) Special screening examination for human papillomavirus (HPV) documented in this encounter Care Teams Machine Stamper Relationship Specialty Start Date End Date Yolande Wills NP [address] [place] [address] PCP - General Family Medicine - Primary Care 07/21/22 documented as of this encounter
[2024-05-06 10:01] LABS: Glucose 106 mg/dL (74-106)
== END 2024-05-06 03:16 | disposition home or self-care (01) ==
LOC: LBO 03:15
PROVIDERS: PCP Nurse Practitioner; Referring Provider Nurse Practitioner; Visit Provider Nurse Practitioner
DX: R73.03 Prediabetes (principal)
CPT/HCPCS: 36415; 82947; 83036

== ENCOUNTER 2024-10-15 00:24 | Outpatient (CLI) | payer MEDICARE, OTHER, SELFPAY ==
--- OUTSIDE RECORDS SUMMARY | 2024-10-15 00:26 | XMS_ITS | Clinical Summary ---
Author Organization [facility] Address [address] [place] [address] Care Team Providers Care Process Development Manager Name Role Phone Yolande Wills MANAGEMENT RETAIL INTERN Primary Care Provider [phone] Social History Tobacco Use Types Packs/Day Years Used Date Smoking Tobacco: Never Assessed Comments Unknown Sex and Gender Information Value Date Recorded Sex Assigned at Not on file Legal Sex Female 18:17 EST Gender Identity Not on file Sexual Orientation Not on file Plan of Treatment Health Maintenance Due Date Last Done Comments Fall Risk Screening 2022 COVID-19 Vaccine ( season) 2024 RSV Immunization ( o r 60+ Years) (1 - 1-dose 75+ series) 01/10/2032 Hepatitis C Screen Completed 10/04/2023 Procedures Procedure Name Priority Date/Time Associated Diagnosis Comments HEPATITIS C AB W REFLEX TO HCV RNA BY PCR Today 10/04/2023 10:04 EST from Last 3 Months or Most Recently Relevant to Health Maintenance Results * HEPATITIS C AB W REFLEX TO HCV RNA BY PCR (10/04/2023 10:04 EST) Hep C Antibody Negative Negative 10/04/2023 21:42 EST [facility] Blood VENOUS BLOOD / Unknown 10/04/2023 10:04 EST 10/04/2023 17:25 EST us Provider Outr Resulting Lab CHEMISTRY & BLOOD GA S ORDERABLES Final Result [facility] [address] [place] [phone] from Last 3 Months or Most Recently Relevant to Health Maintenance Insurance [place] Care Teams Process Development Manager Relationship Specialty Start Date End Date Yolande Wills NP [address] [place] [address] PCP - General Family Medicine - Primary Care 07/21/22
--- OUTSIDE RECORDS SUMMARY | 2024-10-15 00:26 | XMS_ITS | Encounter Summary ---
Author Organization [facility] Address [address] [place] [address] Care Team Providers Care Information Assurance Engineer Name Role Phone Yolande Wills ENGINEERING OPERATOR Primary Care Provider [phone] Encounter Details Date Type Department Care Team (Late st Contact Info) Description 08/28/2022 Lab Requisition [facility] Pathology & Laboratory Medicine - [facility] [address] [place] [address] Yasmani Fernández MD [address] [place] [address], [place] [id number] Encounter for screening for malignant neoplasm of [...] management options, if applicable. 08/29/2022 11:12 EST [facility] Final Diagnosis A. COLON, SIGMOID, POLYP, BIOPSY: - Serrated polyp most consistent with hyperplastic polyp. 08/29/2022 11:12 [facility] Attestation There was significant resident/fellow involvement in the diagnostic evaluation of this case. By the signature below, the attending physician certifies that they have personally conducted a gross and/or microscopic examination of the described specimens and rendered or confirmed the above diagnosis. 08/29/2022 11:12 [facility] at 1112 Clinical History Screening for colon cancer 08/29/2022 11:12 [facility] Gross Description A. Received in formalin labelled with proper patient identification (initials D, S) and sigmoid polyp is a single amaro tissue fragment (0.6 x 0.1 x 0.1 cm). Submitted intact in A1. ALEXY WILSON 08/28/2022 8:40 08/29/2022 11:12 [facility] Resident/Ojseph w: Annabelle Yancey MD 08/29/2022 11:12 [facility] Performing Lab [email or web address] 08/29/2022 11:12 [facility] Scanned Images 08/29/2022 11:12 [facility] Tissue ENTIRE SIGMOID COLON / Unknown 08/27/2022 12:41 EST 08/28/2022 7:44 EST us Yasmani Fernández MD PATHOLOGY ORDERABLES Fin al Result [facility] [address] [place] [address] documented in this encounter Visit Diagnoses Diagnosis Encounter for screening for malignant neoplasm of colon Special screening for malignant neoplasms, colon documented in this encounter Care Teams Information Assurance Engineer Relationship Specialty Start Date End Date Yolande Wills NP [address] [place] [address] PCP - General Family Medicine - Primary Care 07/21/22 documented as of this encounter
--- OUTSIDE RECORDS SUMMARY | 2024-10-15 00:26 | XMS_ITS | Encounter Summary ---
Author Organization [facility] Address [address] [place] [address] Care Team Providers Care Acid Crane Operator Name Role Phone Yolande Wills SHAREPOINT CONSULTANT Primary Care Provider [phone] Encounter Details Date Type Department Care Team (Late st Contact Info) Description 10/04/2023 Lab Requisition [facility] Pathology & Laboratory Medicine - [facility] [address] [place], [place] [address] Outr Resulting Lab, Provider Social History Tobacco [...] 10:04 EST) Hold Hold 10/04/2023 18:31 EST [facility] Blood VENOUS BLOOD / Unknown 10/04/2023 10:04 EST 10/04/2023 17:30 EST us Provider Outr Resulting Lab LAB INFO SERVICE AND SUPPORT & PHONE RESULT Final Result Performing Organization Address [facility] Co de Phone Number [facility] [address] [place] [address] * HEPATITIS C AB W REFLEX TO HCV RNA BY PCR (10/04/2023 10:04 EST) Hep C Antibody Negative Negative 10/04/2023 21:42 EST [facility] Blood VENOUS BLOOD / Unknown 10/04/2023 10:04 EST 10/04/2023 17:25 EST us Provider Outr Resulting Lab CHEMISTRY & BLOOD GA S ORDERABLES Final Result Performing Organization Address [facility] de Phone Number [facility] [address] [place] [address] * HIGH SENSITIVITY C-REACTIVE PROTEIN (CARDIOVASCULAR DISEASE) (10/04/2023 10:04 EST) [facility] High Sensitivity CRP 3.83 See Note mg/L 10/04/2023 17:48 EST [facility] Comment: Reference Range: ??Low Risk: ? <1.0 mg/L ??Average Risk: ?? 1.0 - 3.0 mg/L ??High Risk: ?>3.0 mg/L ??Indeterminate*: >10.0 mg/L ??*May be an indication of another source of inflammation or infection Blood VENOUS BLOOD / Unknown 10/04/2023 10:04 EST 10/04/2023 17:25 EST us Provider Outr Resulting Lab CHEMISTRY & BLOOD GA S ORDERABLES Final Result Performing Organization Address [facility] Co de Phone Number [facility] [address] [place] [address] documented in this encounter Visit Diagnoses Not on filedocumented in this encounter Care Teams Acid Crane Operator Relationship Specialty Start Date End Date Yolande Wills NP [address] [place] [address] PCP - General Family Medicine - Primary Care 07/21/22 documented as of this encounter
--- OUTSIDE RECORDS SUMMARY | 2024-10-15 00:26 | XMS_ITS | Encounter Summary ---
Author Organization [facility] Address [address] [place] [address] Care Team Providers Care Ferry Boat Captain Name Role Phone Yolande Wills ASSET RECOVERY SPECIALIST Primary Care Provider [phone] Encounter Details Date Type Department Care Team (Latest Contact Info) Description 09/28/2022 Lab Requisition [facility] Pathology & Laboratory Medicine - [facility] [address] [place] [address] Yolande Wills, ASSET RECOVERY SPECIALIST [address] [place], [place] [id number] Encounter for screening for malignant neoplasm of [...] Risk types, PCR Negative Negative 10/09/2022 14:54 [facility] Comment:No E6 or E7 mRNA is detected from HPV types 16,18,31,33,35,39,45,51,52,56,58,59,66, and 68 by line painting machine operator mediated amplification. Papanicolaou smear specimen (specimen) CERVIX UTERI STRUCTURE / Unknown 09/27/2022 13:30 EST 10/08/2022 14:20 EST us Yolande Wills NP MICROBIOLOGY - GENERAL ORDERAB LES Final Result [facility] [address] [place] [address] * PAP TEST (09/27/2022 13:30 EST) Specimens A. Cervix and/or Endocervix , ThinPrep Imaging System with Manual Evaluation 10/09/2022 14:54 [facility] Specimen Adequacy Satisfactory for Evaluation - transformation zone component present 10/09/2022 14:54 [facility] General Categorization Negative for intraepithelial lesion or malignancy 10/09/2022 14:54 [facility] Descriptive Diagnosis Reactive cellular changes associated with inflammation present (includes repair). 10/09/2022 14:54 [facility] Attestation By the signature below, the attending physician certifies that they have personally conducted a gross and/or microscopic examination of the described specimens and rendered or confirmed the above diagnosis. 10/09/2022 14:54 [facility] at 1454 Clinical History See below 10/09/20 14:54 [facility] HPV The result for the Human Papillomavirus (HPV) Detection-High Risk Types is Negative. No E6 or E7 mRNA is detected from HPV types 16,18,31,33,35,39 ,45,51,52,56,58,5 9,66, and 68 by line painting machine operator mediated amplification.Yuko ting was performed on specimen [id number] and was resulted on 10/09/2022 1454 EST by LASHAY, LAB INSTRUMENT RESULTS IN 10/09/2022 14:54 EST [facility] Performing Lab [facility] 10/09/2022 14:54 EST [facility] Scanned Images 10/09/2022 14:54 EST [facility] Papanicolaou smear specimen (specimen) CERVIX UTERI STRUCTURE / Unknown 09/27/2022 13:30 EST 09/28/2022 9:39 EST us Yolande Wills NP PATHOLOGY ORDERABLES Final Res ult [facility] [address] [place] [address] documented in this encounter Visit Diagnoses Diagnosis Encounter for screening for malignant neoplasm of cervix Screening for malignant neoplasm of the cervix Encounter for screening for human papillomavirus (HPV) Special screening examination for human papillomavirus (HPV) documented in this encounter Care Teams Ferry Boat Captain Relationship Specialty Start Date End Date Yolande Wills NP [address] [place] [address] PCP - General Family Medicine - Primary Care 07/21/22 documented as of this encounter
--- OUTSIDE RECORDS SUMMARY | 2024-10-15 00:26 | XMS_ITS | Referral Summary ---
Author Organization [facility] Address [address] [place] [address] Care Team Providers Care Erector Operator Name Role Phone Yolande Wills AIR VALVE REPAIRER Primary Care Provider [phone] Social History Tobacco Use Types Packs/Day Years [...] C Antibody Negative Negative 10/04/2023 21:42 EST [facility] Blood VENOUS BLOOD / Unknown 10/04/2023 10:04 EST 10/04/2023 17:25 EST us Provider Outr Resulting Lab CHEMISTRY & BLOOD GA S ORDERABLES Final Result [facility] [address] [place] [address] from Last 3 Months or Most Recently Relevant to Health Maintenance Insurance [place] MEDICARE [employer] [place] Care Teams Erector Operator Relationship Specialty Start Date End Date Yolande Wills NP [address] [place] [id number] PCP - General Family Medicine - Primary Care 07/21/22
--- OUTSIDE RECORDS SUMMARY | 2024-10-15 00:26 | XMS_ITS | Encounter Summary ---
Author Organization [facility] Address [address] [place] [address] Care Team Providers Care Shipper And Receiving Name Role Phone Miguel Catherine MD Primary Care Provider [place]availhudson e Encounter Details Date Type Department Care Team (Late st Contact Info) Description 03/20/2012 Results Only [facility] - [facility] ([facility]) [address] [place], [place] [id number] Rangel Noel MD [address] [place] [id number] Social History Tobacco Use Types Packs/Day Years [...] ? MEME GUERRERO ? Accession #: ? [id number] ? : ? 1955 (Age: 57) ??F [...] Gross Description: ? Received in formalin labelled Day, Meme and colon polyp 20 cm is a amaro-pink irregular soft tissue fragment measuring 0.4 x 0.3 x 0.2 cm. ??The specimen is entirely submitted in a single cassette. (Lyn Portillo)/mpl End of Report [facility] 03/20/2012 03/21/2012 8:0 5 EDT us Rangel Noel MD PATHOLOGY ORDERABLES Final Result [facility] [address] [place] [address] documented in this encounter Visit Diagnoses Not on filedocumented in this encounter Care Teams Shipper And Receiving Relationship Specialty Start Date End Date Miguel Catherine MD PCP - General 03/21/12 07/20/22 documented as of this encounter
--- OUTSIDE RECORDS SUMMARY | 2024-10-15 00:26 | XMS_ITS | Encounter Summary ---
Author Organization [facility] Address [address] [place] [address] Care Team Providers Care Senior Vice President And Chief Information Officer Name Role Phone Jordy Catherine MD Primary Care Provider Unavailhudson e Encounter Details Date Type Department Care Team (Late st Contact Info) Description 10/01/2017 Results Only [facility] [phone] Yolande Wills, KITCHEN AND BATH DESIGNER [address] [place] [address] Social History Tobacco Use Types [...] ? MEME GUERRERO ? Accession #: ? [id number] ? : ? 1955 (Age: 62) ??F ?Collect Date: ? 10/01/2017 ? Location: ? [facility] ? Receive Date: ? 10/03/2017 ? Provider: YOLANDE WILLS KITCHEN AND BATH DESIGNER Copy to: ? Final Report SPECIMEN ADEQUACY ? Satisfactory for Evaluation - transformation zone component absent GENERAL CATEGORIZATION ? Negative for Intraepithelial Lesion or Malignancy ?? Specimen/Source: ??Pap Test, Cervix/Endocervix, ThinPrep Imaging System with manual evaluation Document reviewed and electronically signed by: ? Oli Choudhury, RENETTA(ASCP) ? Report ??Date: 10/16/2017 11:40 HPV with Pap Test ? Date Ordered: ? 10/16/2017 ? Status: ?? Signed Out ?Date Complete: ? 10/18/2017 ? By: ??System Interface ? Date Reported: ? 10/18/2017 ? Interpretation RESULT: Negative for HPV. No E6 or E7 mRNA is detected from HPV types 16,18,31,33,35, 39,45,51,52,56,58, 59,66, and 68 by systems architecture analyst mediated amplification. Comments Document reviewed and electronically signed by: ? System Interface ? Report date: 10/18/2017 By the signature above, the attending physician certifies that he/she has personally conducted a gross and/or microscopic examination of the described specimens and rendered or confirmed the above diagnosis. End of Report [facility] 10/01/2017 10/03/2017 us Yolande Wills KITCHEN AND BATH DESIGNER PATHOLOGY ORDERABLES Final Res ult [facility] [address] [place] [address] documented in this encounter Visit Diagnoses Not on filedocumented in this encounter Care Teams Senior Vice President And Chief Information Officer Relationship Specialty Start Date End Date Jordy Catherine MD PCP - General 03/21/12 07/20/22 documented as of this encounter
[2024-10-15 08:37] LABS: Abs Immature Grans 0.01 10^3/uL (0.0-0.06); Absolute Basophil Count 0.03 10^3/uL (0.0-0.2); Absolute Eosinophil Count 0.05 10^3/uL (0.0-0.7); Absolute Lymphocyte Count 1.67 10^3/uL (1.2-3.4); Absolute Monocyte Count 0.48 10^3/uL (0.1-0.8); Absolute Neutrophil Count 3.16 10^3/uL (1.2-6.7); Basophils % 0.6 %; Eosinophils % 0.9 %; HCT 40.2 % (36.0-46.0); HGB 13.5 g/dL (11.2-15.7); Immature Grans % 0.2 %; Lymphocytes % 30.9 %; MCH 31.2 pg (27.0-33.0); MCHC 33.6 % (32.0-36.0); MCV 93 fL (80-95); MPV 9.8 fL (8.0-11.0); Monocytes % 8.9 %; Neutrophils % 58.5 %; Platelet Count 285 10^3/uL (130-400); RBC 4.33 10^6/uL (3.93-5.22); RDW 12.3 % (11.7-14.6); RDW-SD 42.4 fL
[2024-10-15 08:47] LABS: Hemoglobin A1C 5.8 % (<5.7)
[2024-10-15 09:05] LABS: ALT 30 U/L (14-59); AST 22 U/L (15-37); Albumin 3.8 g/dL (3.4-5.0); Alkaline Phosphatase 79 U/L (46-116); Anion Gap 9.3 mmol/L (3-11); BUN 19 mg/dL (7-18); Bilirubin, Total 0.49 mg/dL (0.2-1.0); CO2 29.7 mmol/L (21.0-32.0); CREATININE 0.9 mg/dL (0.55-1.02); Calcium 9.2 mg/dL (8.5-10.1); Calculated LDL 157 mg/dL (<100); Chloride 106 mmol/L (98-107); Cholesterol 253 mg/dL (<200); Estimated GFR 70.07 (mL/min/1.73m2); Glucose 112 mg/dL (74-106); HDL Cholesterol 78 mg/dL (40-60); Sodium 145 mmol/L (136-145); TSH (W/Ref FT4) 0.03 uIU/mL (0.36-3.74); Total Protein 7.3 g/dL (6.4-8.2); Triglyceride 92 mg/dL (<150)
[2024-10-15 09:42] LABS: FREE T4 1.02 ng/dL (0.76-1.46)
== END 2024-10-15 00:25 | disposition home or self-care (01) ==
PROVIDERS: PCP Nurse Practitioner; Referring Provider Nurse Practitioner; Visit Provider Nurse Practitioner
DX: R73.03 Prediabetes (principal); E78.5 Hyperlipidemia, unspecified; G47.33 Obstructive sleep apnea (adult) (pediatric); E04.1 Nontoxic single thyroid nodule
CPT/HCPCS: 36415; 80053; 80061; 83036; 84439; 84443; 85025